=== PATIENT | female | born 1975 | race Caucasian/White ===

== ENCOUNTER 2019-08-31 23:14 | Emergency (ER) | payer BC ==
[~2019-08-31] VITALS: Ht 154.9 cm; Wt 77.1 kg
[~2019-08-31 23:14] MED LIST: FLEXERIL PO; HYDROCODON-ACE1 EAC7 PO; HYDROCODONE-AP1 EAC6 PO; IBUPROFEN 800800 M1 PO; IBUPROFEN 800800 MG PO; IMODIUM MULTI-1 EACH PO; MACROBID 100 M100 M1 PO; MEDROLDOSEPACK PO; METFORMIN HCL500 MG PO; NORCO 5-325 TA1 EACH PO; ONDANSETRON HCL4 M2 PO; PERCOCET 5-3251 EACH PO; PHENERGAN 25 MG25 MG PO; PREDNISONE 20 M20 M1 PO; PREDNISONE 20 M20 MG PO; PROZAC 10 MG CA10 MG PO; ROBAXIN 750 MG750 M1 PO; TRAMADOL 50 MG50 MG PO; XANAX 0.5 MG0.5 MG PO
[2019-08-31] MEDS ORDERED: NEURONTIN 300M300 M2 PO (23:28)
[2019-08-31] MEDS ORDERED: RAYOS5 MG PO (23:28)
[2019-08-31] MEDS ORDERED: TRULICITY1.5 MG/0.5 SQ (23:29)
[2019-08-31] MEDS ORDERED: TORADOL 10 MG T10 MG IM (23:30)
[2019-08-31] MEDS ORDERED: JANUVIA100 MG PO (23:33)
[2019-09-01 00:06] LABS: ABSOLUTE BASOPHILS 0.1 thou/uL (0.0-0.2); ABSOLUTE LYMPHOCYTES 3.3 thou/uL (0.8-5.3); ABSOLUTE MONOCYTES 1.2 thou/uL (0.0-1.2); ABSOLUTE NEUTROPHILS 11.5 thou/uL (1.6-8.1); BASOPHILS 0.8 %; EOSINOPHILS 0.2 %; HEMATOCRIT 42.3 % (37.0-47.0); HEMOGLOBIN 14.5 gm/dL (12.0-15.0); LYMPHOCYTES 20.3 %; MCH 29.5 pg (26.0-34.0); MCHC 34.3 g/dL (28.0-37.0); MONOCYTES 7.4 %; MPV 8.8 fl. (7.2-11.1); NUCLEATED RBCS 0 /100WBC; PLATELET COUNT* 285 thou/uL (150-400); POLYS 71.3 %; RBC 4.92 mil/uL (4.20-5.00); RDW-CV 12.8 % (10.5-14.5); WBC 16.1 thou/uL (4.0-11.0)
[2019-09-01 00:10] LABS: URINE BILIRUBIN NEGATIVE (Negative); URINE BLOOD NEGATIVE (Negative); URINE CLARITY CLEAR; URINE COLOR YELLOW; URINE GLUCOSE-RANDOM 3+ (Negative); URINE KETONES NEGATIVE (Negative); URINE LEUKOCYTES-REFLEX NEGATIVE (Negative); URINE NITRITE-REFLEX NEGATIVE (Negative); URINE PROTEIN NEGATIVE (Negative); URINE UROBILINOGEN 0.2 E.U./dl (0.2-1.0)
[2019-09-01 00:16] LABS: ANION GAP 12 mmol/L (7-16); BUN 14 mg/dL (7-18); CALCIUM 9.8 mg/dL (8.5-10.1); CHLORIDE 96 mmol/L (98-107); CO2 27 mmol/L (21-32); GLUCOSE 426 mg/dL (70-99); POTASSIUM 3.7 mmol/L (3.5-5.1); SODIUM 135 mmol/L (136-145)
[2019-09-01 00:26] LABS: ALBUMIN 3.9 g/dL (3.4-5.0); ALKALINE PHOSPHATASE 113 U/L (46-116); SGOT < 5 U/L (15-37); SGPT 23 U/L (30-65); TOTAL BILIRUBIN 0.3 mg/dL (<0.1-1.0); TOTAL PROTEIN 7.8 g/dL (6.4-8.2)
[2019-09-01 01:59] LABS: BE -4.2 mmol/L (-2 to +3); PCO2 40.2 mmHg (35.0-45.0); PO2 71.3 mmHg (75.0-100.0); pH 7.341 (7.340-7.450)
[2019-09-01 04:05] VITALS: BP 110/66
== END 2019-09-01 04:06 | disposition home or self-care (01) ==
LOC: M.ERS 23:14
PROVIDERS: Personal Emergency Response Attendant
DX: E11.65 Type 2 diabetes mellitus with hyperglycemia (principal); E78.00 Pure hypercholesterolemia, unspecified; F41.9 Anxiety disorder, unspecified; G43.909 Migraine, unspecified, not intractable, without status migrainosus; K50.90 Crohn's disease, unspecified, without complications; Z90.710 Acquired absence of both cervix and uterus; Z90.49 Acquired absence of other specified parts of digestive tract; Z98.890 Other specified postprocedural states

== ENCOUNTER 2019-09-03 22:40 | Emergency (ER) | payer BC ==
[~2019-09-03] VITALS: Ht 154.9 cm; Wt 82.6 kg
[~2019-09-03 22:40] MED LIST changes: +JANUVIA100 MG PO; +NEURONTIN 300M300 M2 PO; +RAYOS5 MG PO; +TORADOL 10 MG T10 MG IM; +TRULICITY1.5 MG/0.5 SQ
[2019-09-03] MEDS ORDERED: JANUMET 50-1,01 EACH PO (22:56)
[2019-09-03 23:48] LABS: HEMATOCRIT 41.3 % (37.0-47.0); HEMOGLOBIN 14.2 gm/dL (12.0-15.0); MCH 29.8 pg (26.0-34.0); MCHC 34.4 g/dL (28.0-37.0); MCV 86.6 fL (80.0-100.0); MPV 8.7 fl. (7.2-11.1); NUCLEATED RBCS 0 /100WBC; PLATELET COUNT* 250 thou/uL (150-400); RBC 4.77 mil/uL (4.20-5.00); RDW-CV 12.9 % (10.5-14.5); WBC 10.1 thou/uL (4.0-11.0)
[2019-09-03 23:56] LABS: CALCIUM 8.5 mg/dL (8.5-10.1); CREATININE 0.7 mg/dL (0.6-1.3); POTASSIUM 3.5 mmol/L (3.5-5.1)
[2019-09-04 00:01] LABS: ALBUMIN 3.3 g/dL (3.4-5.0); TOTAL BILIRUBIN 0.2 mg/dL (<0.1-1.0); TOTAL PROTEIN 6.5 g/dL (6.4-8.2)
[2019-09-04 00:36] LABS: ABSOLUTE BASOPHILS 0.1 thou/uL (0.0-0.2); ABSOLUTE EOSINOPHILS 0.4 thou/uL (0.0-0.7); ABSOLUTE LYMPHOCYTES 4.6 thou/uL (0.8-5.3); ABSOLUTE MONOCYTES 0.6 thou/uL (0.0-1.2); ABSOLUTE NEUTROPHILS 4.3 thou/uL (1.6-8.1); ANISOCYTOSIS Occasional; PLATELET ESTIMATE ADEQUATE; TOXIC GRANULATION 2+
[2019-09-04] MEDS ORDERED: VERTICALM25 MG PO (01:06)
[2019-09-04 01:18] VITALS: BP 138/87
== END 2019-09-04 01:18 | disposition home or self-care (01) ==
LOC: M.ERS 22:40
PROVIDERS: Emergency Medicine
DX: G43.909 Migraine, unspecified, not intractable, without status migrainosus (principal); R42 Dizziness and giddiness; F41.9 Anxiety disorder, unspecified; E11.9 Type 2 diabetes mellitus without complications; E78.00 Pure hypercholesterolemia, unspecified; Z90.710 Acquired absence of both cervix and uterus; Z98.890 Other specified postprocedural states; K50.90 Crohn's disease, unspecified, without complications

== ENCOUNTER 2019-09-05 17:51 | Emergency (ER) | payer BC ==
[~2019-09-05] VITALS: Ht 154.9 cm; Wt 78.0 kg
[~2019-09-05 17:51] MED LIST changes: +JANUMET 50-1,01 EACH PO; +VERTICALM25 MG PO
[2019-09-05 18:36] LABS: INFLUENZA A ANTIGEN Negative (Negative); INFLUENZA B ANTIGEN Negative (Negative)
[2019-09-05 20:17] VITALS: BP 143/98
== END 2019-09-05 20:19 | disposition home or self-care (01) ==
LOC: M.ERS 17:51
PROVIDERS: Nurse Practitioner Family
DX: G43.909 Migraine, unspecified, not intractable, without status migrainosus (principal); B34.9 Viral infection, unspecified; K50.90 Crohn's disease, unspecified, without complications; E78.00 Pure hypercholesterolemia, unspecified; E11.9 Type 2 diabetes mellitus without complications; K58.9 Irritable bowel syndrome, unspecified; Z90.710 Acquired absence of both cervix and uterus; Z88.8 Allergy status to other drugs, medicaments and biological substances